=== PATIENT | male | born 1950 | race Caucasian/White ===

== ENCOUNTER 2018-04-22 15:40 | Outpatient (CLI) | payer MEDICARE, BC ==
--- NOTE | 2018-04-22 16:19 | RAD ---
FOUR VIEWS CERVICAL SPINE 04/22/18 HISTORY: Status post surgery. AP, lateral, swimmer's, and open mouth odontoid views cervical spine obtained. Images demonstrate ACDF with anterior plates and screws using the C4, 5 and 6 vertebral levels. No ev idence of acute fractures or bony lesions seen otherwise. Plates and screws are in good position. IMPRESSION: ACDF with fusion of the C4, 5 and 6 levels. POS: [facility]
== END 2018-04-22 15:41 | disposition home or self-care (01) ==
LOC: TBSIIMAG 15:40
PROVIDERS: ATTEND Neurological Surgery
DX: M54.12 Radiculopathy, cervical region (principal); Z98.1 Arthrodesis status
CPT/HCPCS: 72040

== ENCOUNTER 2018-06-03 13:32 | Outpatient (CLI) | payer MEDICARE, BC ==
--- NOTE | 2018-06-03 14:49 | RAD ---
CERVICAL SPINE THREE VIEWS: 06/03/2018 HISTORY: Cervical radiculopathy. Follow up post surgical changes. The patient is having difficulty swallowin g. COMPARISON: 04/22/2018 FINDINGS: Again noted are post surgical changes related to anterior cervical fusion of the C4-C5 and C5-C6 leve ls with anterior plate and screws again transfixing this level. Intradiskal prostheses are again not ed in place and appear stable in position. There is a slight tilt of the anterior plate, but this is stable in position. No fracture or subluxation is seen from the C1 to C6-C7 level. A portion of th e C7 vertebral body, as well as the cervicothoracic junction, are obscured on this exam. There is mi ld prominence of the prevertebral soft tissues, anterior to the level of post surgical change, but th is is similar to the prior study. Vascular calcifications overly the left neck. IMPRESSION: 1. Stable alignment of anterior cervical fusion hardware transfixing the C4 through C6 level with an terior plate and screws again seen. 2. Mild prominence of the prevertebral soft tissues anterior to the level of post surgical change. POS: [facility]
== END 2018-06-03 13:33 | disposition home or self-care (01) ==
LOC: TBSIIMAG 13:32
PROVIDERS: ATTEND Neurological Surgery
DX: M54.12 Radiculopathy, cervical region (principal); Z98.1 Arthrodesis status
CPT/HCPCS: 72040

== ENCOUNTER 2019-06-16 08:38 | Outpatient (CLI) | payer MEDICARE, BC ==
--- NOTE | 2019-06-16 10:49 | RAD ---
LUMBAR SPINE 2 VIEWS: DATE: 06/16/2019. COMPARISON: None. HISTORY: Surgery 2 weeks ago, reevaluation. FINDINGS: Clips in the right upper quadrant suggest prior cholecystectomy. Cutaneous berna are noted posteri isela. There is a right-sided pedicle screw at L3 and L4 with a vertically oriented interlocking anthony. There is facet hypertrophy within the lower lumbar spine, most prominent at L4-5 and L5-S1. There is disk space narrowing with degenerative end plate change and anterior osteophyte formation at L3-4. No evidence for hardware failure. No acute fracture or dislocation. IMPRESSION: Postoperative changes as detailed above. POS: [facility]
== END 2019-06-16 08:39 | disposition home or self-care (01) ==
LOC: TBSIIMAG 08:38
PROVIDERS: ATTEND Neurological Surgery
DX: M54.16 Radiculopathy, lumbar region (principal); Z98.890 Other specified postprocedural states
CPT/HCPCS: 72100

== ENCOUNTER 2020-03-02 09:49 | Outpatient (CLI) | payer MEDICARE, BC ==
--- NOTE | 2020-03-02 12:00 | MRI ---
MRI CERVICAL SPINE WITHOUT CONTRAST: Date: 03/02/2020 INDICATION: Cervical instability. Degenerative disc disease and neck pain. Correlation made to plain films of cervical spine from 2018. FINDINGS: Prior anterior fusion procedure is noted. Anterior plate and screws transfix C4, C5, and C6 with inte rbody implants. These devices produce MRI artifact at these levels. The other cervical vertebra maintain height and alignment. The disc spaces at C2-3, C3-4, and C6-7 ar e preserved. C2-3: Small posterior disc protrusion indents the anterior thecal sac. No impingement on the cord. N o central canal or foraminal stenosis. C3-4: There is posterior disc protrusion with spondylosis which mildly impinges on the anterior cord . This produces slight flattening of the anterior cord. C4-5: Posterior fusion changes with mild posterior spondylosis effacing the anterior subarachnoid sp saher. No central canal or foraminal stenosis. C5-6: Bony fusion with posterior spondylosis effacing the anterior subarachnoid space. There is mild left foraminal stenosis due to hypertrophic change. C6-7: Posterior disc bulge and spondylosis efface the anterior subarachnoid space and abut the anter ior cord. No significant foraminal stenosis apparent. Cervical cord signal appears normally maintained. IMPRESSION: 1. Postop fusion changes at C4-5 and C5-6. 2. Disc protrusions at C3-4 mildly impinge on the cord and disc bulge and spondylosis at C6-7 abuts the anterior cord as described above. CT cervical spine may be of benefit to reduce artifact and better assess bony spondylosis. POS: [facility]
== END 2020-03-02 09:50 | disposition home or self-care (01) ==
LOC: TBSIIMAG 09:49
PROVIDERS: ATTEND Neurological Surgery
DX: M53.2X2 Spinal instabilities, cervical region (principal); M50.30 Other cervical disc degeneration, unspecified cervical region; M50.21 Other cervical disc displacement, high cervical region; M47.812 Spondylosis without myelopathy or radiculopathy, cervical region
CPT/HCPCS: 72141

== ENCOUNTER 2021-06-16 14:23 | Outpatient (CLI) | payer MEDICARE, BC | END 2021-06-16 14:24 | disposition home or self-care (01) | PROVIDERS: ATTEND Family Medicine | DX: Z74.09 Other reduced mobility (principal) ==